=== PATIENT | male | born 1955 | race Caucasian/White ===

== ENCOUNTER 2022-03-29 20:27 | Inpatient (IN) ==
[2022-03-29 21:36] LABS: Basophils % 0.3 % (0.0-0.8); Eosinophils # 0.1 10*3/uL (0.0-0.87); Eosinophils % 0.6 % (0.00-10.9); Hematocrit 33.6 VOL% (42.0-52.0); Hemoglobin 11.3 GM/DL (14.0-18.0); Immature Granulocytes % 1.2 %; Immature Granulocytes Absolute 0.14 #; Lymphocytes # 1.2 10*3/uL (1.4-4.0); Lymphocytes % 10.5 % (21.2-54.2); Mean Corpuscular HGB Conc 33.6 GM/DL (32-36); Mean Corpuscular Volume 103.1 FL (87-102); Mean Platelet Volume 9.2 FL (9.6-12.0); Monocytes # 0.9 10*3/uL (0.11-0.8); Monocytes % 7.5 % (1.7-12.7); Neutrophils % 79.9 % (38.7-73.9); Platelet Count 218 T/CUMM (130-400); Red Blood Count 3.26 MC/CUMM (3.8-5.5); Red Cell Distribution Width 12.5 % (9.3-17.3); White Blood Count 11.5 T/CUMM (4-12)
[2022-03-29] MEDS ORDERED: SODIUM CHLORIDE 0.9% 1,000 ML IV STA (21:41)
[2022-03-29] MEDS ORDERED: ONDANSETRON 4 MG/2 ML VIAL IV STA (21:41)
[2022-03-29 21:42] LABS: Calcium 8.4 MG/DL (8.5-10.1); Potassium 4.1 MMOL/L (3.5-5.1)
[2022-03-30] MEDS ORDERED: ALBUTEROL NEB SOLN 5 MG/ML 20 ML/BOTTLE CONT NEB STA (00:24)
[2022-03-30] MEDS ORDERED: DEXAMETHASONE 4 MG/1 ML VIAL IV STA (00:24)
[2022-03-30] MEDS ORDERED: AMPICILLIN/SULBACTAM 3,000 MG in SODIUM CHLORIDE 0.9% 100 ML IV STA (00:26)
[2022-03-30] MEDS ORDERED: AZITHROMYCIN INJ 500 MG in SODIUM CHLORIDE 0.9% 250 ML IV STA (00:27)
[2022-03-30] MEDS ORDERED: cefTRIAXone 1,000 MG in SODIUM CHLORIDE 0.9% 100 ML IV STA (00:27)
[2022-03-30 01:37] LABS: ABG Base Excess -0.9 MMOL/L (-2.5-2.5); ABG HCO3 23.7 MMOL/L (20-26); ABG Oxygen Saturation 98.5 % (95-100); ABG TCO2 27.2 MMOL/L (23-27)
[2022-03-30 01:47] LABS: ABG PCO2 76.6 MM HG (35-48); ABG PH 7.196 (7.35-7.45)
[2022-03-30] MEDS ORDERED: MELATONIN 3 MG TABLET PO PRN (03:15)
[2022-03-30] MEDS ORDERED: LORazepam 2 MG/1 ML VIAL IV PRN ×2 (03:26→10:00)
[2022-03-30] MEDS: SODIUM CHLORIDE 0.9% 1,000 ML IV SCH ×4 (03:53→23:08)
[2022-03-30] MEDS ORDERED: methylPREDNISolone SOD SUC 40 MG/1 ML VIAL IV SCH (04:00)
[2022-03-30 04:32] LABS: Arterial Base Excess iSTAT 0 MMOL/L (-2.5-2.5); Arterial Bicarbonate iSTAT 29.4 MMOL/L (20-26); Arterial O2 Saturation iSTAT 98 % (95-100); Arterial PCO2 iSTAT 75 MM HG (35-48); Arterial PO2 iSTAT 122 MM HG (80-95); Arterial Total CO2 iSTAT 32 MMO/L (23-27); Arterial pH iSTAT 7.202 (7.35-7.45)
[2022-03-30 05:11] LABS: Barbiturates Screen,Urine Negative (Negative); Benzodiazepines Screen,Urine Negative (Negative); Cannabinoid Screen,Urine Negative (Negative); Opiate Screen,Urine Negative (Negative); Phencyclidine Screen,Urine Negative (Negative)
[2022-03-30] MEDS ORDERED: SODIUM CHLORIDE 0.9% IV SCH (06:00)
[2022-03-30] MEDS ORDERED: METHYLPREDNISOLONE SOD SUC IV SCH (06:00)
[2022-03-30 06:31] LABS: Basophils % 0.4 % (0.0-0.8); Eosinophils % 0.2 % (0.00-10.9); Hematocrit 36.2 VOL% (42.0-52.0); Hemoglobin 11.3 GM/DL (14.0-18.0); Immature Granulocytes % 0.7 %; Immature Granulocytes Absolute 0.06 #; Lymphocytes # 0.3 10*3/uL (1.4-4.0); Lymphocytes % 3.3 % (21.2-54.2); Mean Corpuscular HGB Conc 31.2 GM/DL (32-36); Mean Corpuscular Volume 109.7 FL (87-102); Mean Platelet Volume 11.2 FL (9.6-12.0); Monocytes # 0.1 10*3/uL (0.11-0.8); Monocytes % 1.7 % (1.7-12.7); Neutrophils % 93.7 % (38.7-73.9); Platelet Count 145 T/CUMM (130-400); Red Cell Distribution Width 12.7 % (9.3-17.3); White Blood Count 8.4 T/CUMM (4-12)
[2022-03-30 06:47] VITALS: BP 97/55
[2022-03-30 06:59] LABS: Lymphocytes 4 % (20-55); Total Cells Counted 100
[2022-03-30 07:00] LABS: Platelet Estimate Decreased
[2022-03-30 07:08] LABS: Alanine Aminotransferase 33 U/L (16-61); Albumin 3.3 G/DL (3.4-5.0); Alkaline Phosphatase 56 U/L (45-117); Aspartate Amino Transferase 60 U/L (0-37); Bilirubin,Total < 0.39 MG/DL (0.20-1.00); Blood Urea Nitrogen 12 MG/DL (7-18); Calcium 8.2 MG/DL (8.5-10.1); Carbon Dioxide 21 MMOL/L (21-32); Chloride 103 MMOL/L (98-107); Glucose 88 MG/DL (74-106); Osmolality,Calculated 266.2 MOS/KG (273-304); Sodium 134 MMOL/L (136-145); Total Protein 6.5 G/DL (6.4-8.2)
[2022-03-30] MEDS: ALBUTEROL/IPRATROPIUM 3 ML NEB RESP TX SCH ×3 (07:40→19:24)
[2022-03-30 07:44] LABS: Arterial Base Excess iSTAT -1 MMOL/L (-2.5-2.5); Arterial Bicarbonate iSTAT 28.4 MMOL/L (20-26); Arterial O2 Saturation iSTAT 97 % (95-100); Arterial PCO2 iSTAT 71 MM HG (35-48); Arterial PO2 iSTAT 112 MM HG (80-95); Arterial Total CO2 iSTAT 31 MMO/L (23-27); Arterial pH iSTAT 7.211 (7.35-7.45)
[2022-03-30] MEDS: FOLIC ACID 1 MG TABLET PO SCH (08:00)
[2022-03-30] MEDS: FAMOTIDINE 20 MG TABLET PO SCH ×2 (08:00→20:14)
[2022-03-30] MEDS: ENOXAPARIN 40 MG/0.4 ML SYRINGE SUBCUT SCH (08:00)
[2022-03-30] MEDS: ASCORBIC ACID 500 MG TABLET PO SCH ×2 (08:02→20:14)
[2022-03-30] MEDS ORDERED: ZINC GLUCONATE 50 MG TABLET PO SCH (09:00)
[2022-03-30] MEDS ORDERED: CETIRIZINE 10 MG TABLET PO SCH (09:00)
[2022-03-30] MEDS ORDERED: clonazePAM 0.5 MG TABLET PO SCH (09:00)
[2022-03-30] MEDS ORDERED: CHOLECALCIFEROL 1,000 UNIT TABLET PO SCH (09:00)
[2022-03-30] MEDS ORDERED: THIAMINE 100 MG TABLET PO SCH (09:00)
[2022-03-30] MEDS: CHOLECALCIFEROL 5,000 UNIT TABLET PO SCH ×2 (09:02→20:15)
[2022-03-30] MEDS: ZINC GLUCONATE 50 MG TABLET PO SCH (09:03)
[2022-03-30] MEDS ORDERED: PANTOPRAZOLE 40 MG TABLET PO SCH (10:00)
[2022-03-30] MEDS: MULTIVITAMIN (BEROCCA) TABLET PO SCH (10:15)
[2022-03-30] MEDS: NICOTINE 21 MG/24 HR PATCH TRANSDERM SCH (10:15)
[2022-03-30 10:57] LABS: Arterial Base Excess iSTAT 0 MMOL/L (-2.5-2.5); Arterial Bicarbonate iSTAT 28.5 MMOL/L (20-26); Arterial O2 Saturation iSTAT 95 % (95-100); Arterial PCO2 iSTAT 67 MM HG (35-48); Arterial PO2 iSTAT 91 MM HG (80-95); Arterial Total CO2 iSTAT 30 MMO/L (23-27); Arterial pH iSTAT 7.238 (7.35-7.45)
[2022-03-30] MEDS: methylPREDNISolone SOD SUC 40 MG/1 ML VIAL IV SCH ×2 (13:54→21:44)
[2022-03-30 14:21] LABS: Arterial Base Excess iSTAT 1 MMOL/L (-2.5-2.5); Arterial Bicarbonate iSTAT 29.3 MMOL/L (20-26); Arterial O2 Saturation iSTAT 96 % (95-100); Arterial PCO2 iSTAT 64 MM HG (35-48); Arterial PO2 iSTAT 93 MM HG (80-95); Arterial Total CO2 iSTAT 31 MMO/L (23-27); Arterial pH iSTAT 7.268 (7.35-7.45)
[2022-03-30] MEDS: chlordiazePOXIDE 25 MG CAPSULE PO SCH ×2 (15:21→21:44)
[2022-03-30] MEDS: MELATONIN 3 MG TABLET PO SCH (20:14)
[2022-03-30] MEDS: THIAMINE 100 MG TABLET PO SCH (20:14)
[2022-03-31] MEDS: ALBUTEROL/IPRATROPIUM 3 ML NEB RESP TX SCH ×4 (00:14→19:21)
[2022-03-31 04:05] LABS: Arterial Base Excess iSTAT 2 MMOL/L (-2.5-2.5); Arterial Bicarbonate iSTAT 29.6 MMOL/L (20-26); Arterial O2 Saturation iSTAT 97 % (95-100); Arterial PCO2 iSTAT 61 MM HG (35-48); Arterial PO2 iSTAT 106 MM HG (80-95); Arterial Total CO2 iSTAT 31 MMO/L (23-27); Arterial pH iSTAT 7.296 (7.35-7.45)
[2022-03-31] MEDS: chlordiazePOXIDE 25 MG CAPSULE PO SCH ×3 (04:58→15:02)
[2022-03-31 06:22] LABS: Calcium 8.7 MG/DL (8.5-10.1); Osmolality,Calculated 272.1 MOS/KG (273-304)
[2022-03-31] MEDS: methylPREDNISolone SOD SUC 40 MG/1 ML VIAL IV SCH ×2 (06:31→17:10)
[2022-03-31 06:48] LABS: Basophils % 0.2 % (0.0-0.8); Hematocrit 30.8 VOL% (42.0-52.0); Hemoglobin 10.1 GM/DL (14.0-18.0); Immature Granulocytes % 0.6 %; Immature Granulocytes Absolute 0.04 #; Lymphocytes # 0.5 10*3/uL (1.4-4.0); Lymphocytes % 8.3 % (21.2-54.2); Mean Corpuscular HGB Conc 32.8 GM/DL (32-36); Mean Corpuscular Volume 104.4 FL (87-102); Mean Platelet Volume 9.3 FL (9.6-12.0); Monocytes # 0.5 10*3/uL (0.11-0.8); Monocytes % 7.8 % (1.7-12.7); Neutrophils % 83.1 % (38.7-73.9); Platelet Count 197 T/CUMM (130-400); Red Blood Count 2.95 MC/CUMM (3.8-5.5); Red Cell Distribution Width 12.7 % (9.3-17.3); White Blood Count 6.4 T/CUMM (4-12)
[2022-03-31 07:47] LABS: Folate > 24.00 NG/ML (5.38-24.0); Vitamin B12 396 PG/ML (211-911)
[2022-03-31] MEDS: ENOXAPARIN 40 MG/0.4 ML SYRINGE SUBCUT SCH (08:01)
[2022-03-31] MEDS: MULTIVITAMIN (BEROCCA) TABLET PO SCH (08:01)
[2022-03-31] MEDS: NICOTINE 21 MG/24 HR PATCH TRANSDERM SCH (08:01)
[2022-03-31] MEDS: FOLIC ACID 1 MG TABLET PO SCH (08:01)
[2022-03-31] MEDS: THIAMINE 100 MG TABLET PO SCH ×2 (08:02→21:27)
[2022-03-31] MEDS: FAMOTIDINE 20 MG TABLET PO SCH ×2 (08:02→21:27)
[2022-03-31] MEDS: ASCORBIC ACID 500 MG TABLET PO SCH ×2 (08:02→21:28)
[2022-03-31] MEDS: ZINC GLUCONATE 50 MG TABLET PO SCH (08:03)
[2022-03-31] MEDS: CHOLECALCIFEROL 5,000 UNIT TABLET PO SCH ×2 (08:04→21:28)
[2022-03-31] MEDS: AZITHROMYCIN 250 MG TABLET PO SCH (08:04)
[2022-03-31] MEDS: SODIUM CHLORIDE 0.9% 1,000 ML IV SCH (08:05)
[2022-03-31] MEDS ORDERED: IBUPROFEN 800 MG TABLET PO ONE (21:00)
[2022-03-31] MEDS: MELATONIN 3 MG TABLET PO SCH (21:27)
[2022-04-01] MEDS: chlordiazePOXIDE 25 MG CAPSULE PO SCH ×2 (00:54→08:51)
[2022-04-01] MEDS: ALBUTEROL/IPRATROPIUM 3 ML NEB RESP TX SCH ×2 (01:22→09:41)
[2022-04-01 04:06] LABS: Arterial Base Excess iSTAT 5 MMOL/L (-2.5-2.5); Arterial Bicarbonate iSTAT 30.2 MMOL/L (20-26); Arterial O2 Saturation iSTAT 98 % (95-100); Arterial PCO2 iSTAT 47 MM HG (35-48); Arterial PO2 iSTAT 110 MM HG (80-95); Arterial Total CO2 iSTAT 32 MMO/L (23-27); Arterial pH iSTAT 7.416 (7.35-7.45)
[2022-04-01] MEDS: methylPREDNISolone SOD SUC 40 MG/1 ML VIAL IV SCH (05:19)
[2022-04-01 05:22] LABS: Hematocrit 29.9 VOL% (42.0-52.0); Immature Granulocytes % 0.7 %; Immature Granulocytes Absolute 0.05 #; Lymphocytes # 0.6 10*3/uL (1.4-4.0); Lymphocytes % 7.5 % (21.2-54.2); Mean Corpuscular HGB Conc 33.4 GM/DL (32-36); Mean Corpuscular Volume 103.8 FL (87-102); Mean Platelet Volume 9.7 FL (9.6-12.0); Monocytes # 0.5 10*3/uL (0.11-0.8); Monocytes % 6.6 % (1.7-12.7); Neutrophils % 85.2 % (38.7-73.9); Platelet Count 222 T/CUMM (130-400); Red Blood Count 2.88 MC/CUMM (3.8-5.5); Red Cell Distribution Width 12.8 % (9.3-17.3); White Blood Count 7.5 T/CUMM (4-12)
[2022-04-01 05:46] LABS: Osmolality,Calculated 283.3 MOS/KG (273-304); Phosphorous 2.3 MG/DL (2.5-4.9); Potassium 4.1 MMOL/L (3.5-5.1)
[2022-04-01 05:56] LABS: Free T4 (Free Thyroxine) 0.54 NG/DL (0.76-1.46); Thyroid Stimulating Hormone 0.329 uIU/ml (0.358-3.74)
[2022-04-01] MEDS: ENOXAPARIN 40 MG/0.4 ML SYRINGE SUBCUT SCH (08:51)
[2022-04-01] MEDS: CHOLECALCIFEROL 5,000 UNIT TABLET PO SCH (08:51)
[2022-04-01] MEDS: NICOTINE 21 MG/24 HR PATCH TRANSDERM SCH (08:51)
[2022-04-01] MEDS: ASCORBIC ACID 500 MG TABLET PO SCH (08:52)
[2022-04-01] MEDS: AZITHROMYCIN 250 MG TABLET PO SCH (08:52)
[2022-04-01] MEDS: FAMOTIDINE 20 MG TABLET PO SCH (08:52)
[2022-04-01] MEDS: THIAMINE 100 MG TABLET PO SCH (08:52)
[2022-04-01] MEDS: MULTIVITAMIN (BEROCCA) TABLET PO SCH (08:52)
[2022-04-01] MEDS: FOLIC ACID 1 MG TABLET PO SCH (08:52)
[2022-04-01] MEDS: ZINC GLUCONATE 50 MG TABLET PO SCH (08:54)
[2022-04-01] MEDS ORDERED: POTASSIUM PHOSPHATE 30 MMOL in SODIUM CHLORIDE 0.9% 250 ML IV ONE (10:00)
== END 2022-04-01 15:05 | disposition home or self-care (01) | DRG 917 ==
LOC: EDBD → EDUNIT# → N.ED 20:27 → N.EDINP 03-30 02:45 → SUATTDRO 03-30 02:45 → N.ICU 03-30 03:35 → N.CC 03-30 04:44
PROVIDERS: ADMIT Internal Medicine; ATTEND Internal Medicine